=== PATIENT | female | born 1990 | race African-American/Black ===

== ENCOUNTER 2019-03-29 22:47 | Emergency (ER) | payer SELFPAY ==
[~2019-03-29] VITALS: Ht 152.4 cm; Wt 61.2 kg
--- NOTE | 2019-03-29 23:21 | NUR ---
patient ambulated to bathroom and provied urine sample. sample sent to lab.
--- NOTE | 2019-03-29 23:33 | NUR ---
patient taken down for CT with compressor service technician Avelina.
--- NOTE | 2019-03-29 23:41 | NUR ---
patient brought back from CT.
[2019-03-29 23:51] LABS: *URINE HCG, QUAL NEGATIVE (NEGATIVE)
--- NOTE | 2019-03-30 00:02 | NUR ---
Patient discharged to home in stable conditon. Written and verbal after care instructions given. Patient verbalizes understanding of instructions. patient self ambulatory with steady gait. exit care package and personal belongings taken home with the patient at discharge. Patient is a/o x4. patient denies any pain/distress/dizziness or discomfort. patient in stable condition with VSS.
[2019-03-30 00:07] VITALS: BP 101/74
== END 2019-03-30 00:07 | disposition home or self-care (01) ==
LOC: ER 22:47
DX: S00.03XA Contusion of scalp, initial encounter (principal); Z88.0 Allergy status to penicillin; V43.52XA Car driver injured in collision with other type car in traffic accident, initial encounter; Y93.89 Activity, other specified; Y92.89 Other specified places as the place of occurrence of the external cause; Y99.8 Other external cause status
CPT/HCPCS: 70450; 84703; A4663